=== PATIENT | male | born 1990 | race African-American/Black ===

== ENCOUNTER 2018-08-25 18:44 | Emergency (ER) | payer OTHER ==
[~2018-08-25] VITALS: Ht 149.9 cm; Wt 68.0 kg
[2018-08-25] MEDS ORDERED: IBU800 MG PO (19:05)
== END 2018-08-25 19:30 ==
LOC: ER 18:44
DX: R09.81 Nasal congestion (principal); R51 Headache; F17.210 Nicotine dependence, cigarettes, uncomplicated